=== PATIENT | female | born 1990 | race Hispanic/Latino ===

== ENCOUNTER 2017-06-18 07:28 | Inpatient (IN) | payer MEDICAID, OTHER ==
[2017-06-18 07:33] VITALS: BMI 29.5
[2017-06-18 08:07] LABS: BASO % 0.3 % (0.0-2.0); EOS # 0.5 K/uL (0.0-0.7); EOS % 3.8 % (0.0-4.0); HEMOGLOBIN 10.7 g/dL (11.0-16.0); LYMPH # 2.4 K/uL (1.0-4.3); LYMPH % 20.1 % (20.0-40.0); MEAN CELL VOLUME 82.3 fL (81.0-99.0); MEAN CORPUSCULAR HEMOGLOBIN 27.8 pg (27.0-31.0); MEAN CORPUSCULAR HGB CONC 33.8 g/dL (33.0-37.0); MEAN PLATELET VOLUME 9.5 fL (7.2-11.7); MONO # 0.6 K/uL (0.0-0.8); MONO % 4.6 % (0.0-10.0); NEUT # 8.6 K/uL (1.8-7.0); NEUT % 71.2 % (50.0-75.0); RBC 3.84 Mil/uL (3.80-5.20); RED CELL DISTRIBUTION WIDTH 15.7 % (11.5-14.5); WHITE BLOOD COUNT 12.1 K/uL (4.8-10.8)
[2017-06-18 08:17] LABS: HCG,QUALITATIVE URINE POSITIVE (NEGATIVE)
[2017-06-18 08:19] LABS: SQUAMOUS EPITHIAL 16 /hpf (0-5); URINE BACTERIA RARE (<OCC); URINE BILIRUBIN NEGATIVE (NEGATIVE); URINE BLOOD 2+ (NEGATIVE); URINE CLARITY Hazy (Clear); URINE COLOR Yellow (YELLOW); URINE GLUCOSE (UA) NORMAL (Normal); URINE LEUKOCYTE ESTERASE TRACE Leu/uL (Negative); URINE NITRATE NEGATIVE (NEGATIVE); URINE PROTEIN 1+ mg/dL (NEGATIVE)
[2017-06-18 08:20] LABS: ALB/GLOB RATIO 1.1 (1.0-2.1); ALBUMIN 3.6 g/dL (3.5-5.0); ALT/SGPT 11 U/L (9-52); AST/SGOT 16 U/L (14-36); BLOOD UREA NITROGEN 7 mg/dL (7-17); CALCIUM 8.2 mg/dl (8.6-10.4); GFR AFRICAN-AMERICAN > 60; GFR NON-AFRICAN AMERICAN > 60
[2017-06-18 08:24] LABS: BARBITURATES, UR NEGATIVE (NEGATIVE); BENZODIAZEPINES, UR NEGATIVE (NEGATIVE); PHENCYCLIDINE, UR NEGATIVE (NEGATIVE)
[2017-06-18 08:27] LABS: OPIATES, UR POSITIVE (NEGATIVE)
--- NOTE | 2017-06-18 09:22 | C.PDOC ---
History Of Present Illness Patient is a 26 y/o female who presents to the ED requesting detox from heroin. Admits to last dose being yesterday. Patient is currently 18 weeks ; A2. LMP was 01/19/17. Denies fever, chills, headache, dizziness, neck pain, CP, SOB, dyspnea, abdominal pain, nausea, vomiting, vaginal bleeding, UTI sx. As of today, patient denies any care. No other physical complaints at this time. At present time, awake, comfortable, appropriate, not in any apparent distress. Time Seen by Provider: 06/18/17 07:40 Chief Complaint (Nursing): Substance Abuse History Per: Patient History/Exam Limitations: no limitations Modifying Factor(s): Narcotics (heroin) Recent travel outside of the [place]: No Past Medical History Reviewed: Historical Data, Nursing Documentation, Vital Signs Vital Signs: Last Vital Signs Temp 98.6 F 06/18/17 07:38 Pulse 87 06/18/17 07:38 Resp 18 06/18/17 07:38 BP 115/72 06/18/17 07:38 Pulse Ox 100 06/18/17 10:38 - Medical History PMH: Asthma Surgical History: No Surg Hx Family History: States: No Known Family Hx - Social History Hx Alcohol Use: No Hx Substance Use: Yes - Immunization History Hx Tetanus Toxoid Vaccination: No Hx Influenza Vaccination: No Hx Pneumococcal Vaccination: No Review Of Systems Except As Marked, All Systems Reviewed And Found Negative. Constitutional: Negative for: Fever, Chills Eyes: Negative for: Vision Change ENT: Negative for: Throat Pain Cardiovascular: Negative for: Chest Pain, Palpitations Respiratory: Negative for: Cough, Shortness of Breath, Wheezing Gastrointestinal: Positive for: Other (18 weeks ). Negative for: Nausea , Vomiting, Abdominal Pain, Diarrhea Genitourinary: Negative for: Dysuria, Incontinence, Hematuria, Vaginal Bleeding Musculoskeletal: Negative for: Neck Pain, Back Pain Skin: Negative for: Rash Neurological: Positive for: Other (requesting heroin detox) Psych: Negative for: Anxiety, Suicidal ideation Physical Exam - Physical Exam Appears: Well, Non-toxic, No Acute Distress Skin: Normal Color, Warm, Dry, No Rash Head: Normacephalic Eye(s): bilateral: PERRL Nose: No Flaring, No Discharge Oral Mucosa: Moist, No Drooling Throat: No Erythema, No Drooling Neck: Trachea Midline, Supple Cardiovascular: Rhythm Regular Respiratory: No Decreased Breath Sounds, No Accessory Muscle Use, No Stridor, No Wheezing, No Plerual Rub Gastrointestinal/Abdominal: Soft, No Tenderness, No Distention, No Guarding Back: No CVA Tenderness Extremity: Normal ROM, No Deformity, No Swelling Neurological/Psych: Oriented x3, Normal Speech ED Course And Treatment - Laboratory Results Result Diagrams: 06/18/17 08:04 06/18/17 08:04 Lab Interpretation: No Acute Changes Urine POC: Positive O2 Sat by Pulse Oximetry: 100 Pulse Ox Interpretation: Normal - CT Scan/US OB pelvic US Other Rad Studies (CT/US): Interpreted By Me, Read By Radiologist CT/US Interpretation: IMPRESSION: Single intrauterine live with ultrasound estimated gestational age of 18 weeks 5 days 1 week 2 days. Estimated date of delivery by ultrasound is 11/14/2017. Progress Note: Pt remained stable in ED. Blood work review and appears without acute findings. (+). Pt is medically cleared for PES evaluation. 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 Beta quant and US ordered. At 10:10, US results review and c/w single live IUP 18w5d, (+) FHR, no acute abnormalities. beta quant c/w US findings. was called for consult per request and was evaluated in ED. At 11:10, pt was interviewed by and admission arranged to detox with Dx: Opioid dependance. Disposition - Disposition Disposition: HOSPITALIZED Disposition Time: 11:01 Condition: STABLE Forms: [facility] (Serbian) - Clinical Impression Clinical Impression: Opioid dependence - Scribe Statement The provider has reviewed the documentation as recorded by the Scribe Lucinda Ulloa All medical record entries made by the Scribe were at my direction and personally dictated by me. I have reviewed the chart and agree that the record accurately reflects my personal performance of the history, physical exam, medical decision making, and the department course for this patient. I have also personally directed, reviewed, and agree with the discharge instructions and disposition.
--- NOTE | 2017-06-18 10:31 | US ---
PROCEDURE: OB Pelvic Ultrasound HISTORY: PSYCH CLEARENCE COMPARISON: None available. FINDINGS: UTERUS: Gestational sac: Single intrauterine gestation. Heart rate: 129 bpm. age (Ultrasound estimated): 18 weeks 5 days 1 week 2 days Keila-gestational hemorrhage: None. Date of delivery (Ultrasound estimated) : 11/14/2017 The amount of amniotic fluid is adequate. The fetus is seen at breech presentation at the time of this exam. The placenta seen at the anterior wall. CERVIX: Long and closed. No cervical abnormality seen. The cervix measures 4.8 centimeter. RIGHT OVARY: The right ovary was not visualized. LEFT OVARY: The left ovary was not visualized. FREE FLUID: None. OTHER FINDINGS: None. IMPRESSION: Single intrauterine live with ultrasound estimated gestational age of 18 weeks 5 days 1 week 2 days. Estimated date of delivery by ultrasound is 11/14/2017.
--- NOTE | 2017-06-18 12:12 | PCM.BM ---
<Mindy Abdalla - Last Filed: 06/18/17 12:06> Treatment Plan Problems - Problems identified on initial assessmt Opiates abuse Date Initiated: 06/18/17 Time Initiated: 11:55 Assessment reference: NA Status: Active Treatment assets and liabiliti Patient Assests: cooperative, ADL independent, good support system, negotiates basic needs Patient Liabilities: substance abuse - Milieu Protocol Maintain good personal hygiene: daily Encourage regular showers, daily Remind patient to perform daily oral care, daily Assist patient to perform ADL's Maintain personal safety: every shift Educate patient to report safety concerns to staff, every shift Monitor environment for contraband/sharps Medication safety: Monitor for expected outcome, potential side effects: every shift, Assess barriers to learning: every shift, Assess readiness for medication education: every shift <Michelle Mcconnell - Last Filed: 06/20/17 12:43> Family Contact Family involvement: Family/SO is involved Family contact: Patient agrees to contact Family contact name: boyfriend - Goals for Treatment Patient goals for treatment: Transition from detox to methadone maintenance and pre-josefa care. Discharge/Continuing Care - Education Needs Education Needs: Patient Medication, Patient Diagnosis/Disease Process, Patient Coping Skills, Patient Anger Management skills, Patient Placement options, Patient Community resources - Discharge Discharge Criteria: Ability to care for self, No longer exhibiting s/s of withdrawal, Reduction of target symptoms Discharge to:: Home, With Family - Treatment Team Participation Patient/Family/SO Statement: 06/20/17 12:43 "I wanna go to a methadone program. The detox is too fast." Discussed with Family/SO: No Was Patient/Family/SO present at Treatment Team Meeting: Yes
--- NOTE | 2017-06-18 15:44 | PCM.PYCHPN ---
Psychiatric Progress Note - Psychiatric Progress Note Patient seen today, length of contact: 15 minutes Patient Chief Complaint: I want to be sober Problems Identified/Issues Discussed: This is a 26 year old White female who was seen in ER for detox treatment. Pt is 17 week . She did not received any care. Pt stated that she has a high risk 2/2 to heroin use and she did not had any insurance due to which she was not able to see any ObGyn. Pt was seen by ObGyn in ER and she was cleared for detox treatment. Patient uses 8-10 bags of heroin, intranasally, daily for the past 7 months and smokes half a joint of marijuana every 3 days. Her last dose of heroin was this morning around 7am and last used marijuana yesterday, 06/17/2017. Patient denies current withdrawal symptoms but states when she experiences them she has chills , shakes, sweats, vomiting and diarrhea. Patient reports she smokes two cigarettes daily. She denies past chemical dependency treatment. Patient denies current psychiatric symptoms but reports having felt depressed in the past. DSM 5 Symptoms Update: Opioid dependence, severe Opioid withdrawal symptoms Mental Status Examination - Cognitive Function Orientation: Person, Place, Situation, Time Memory: Intact Attention: WNL Concentration: WNL Association: WNL Fund of Knowledge: WNL - Mood Mood: Anxious - Affect Affect: Constricted - Speech Speech: Appropriate - Formal Thought Process Formal Thought Process: No Impairment Psychotic Thoughts and Behaviors: denied - Suicidal Ideation Suicidal Ideation: No Plan: denied - Homicidal Ideation Homicidal Ideation: No Plan: denied Goal/Treatment Plan - Goal/Treatment Plan Need for Continued Stay: Discharge may exacerbated symptoms, Severe functional impairment Progress Toward Problem(s) and Goals/Treatment Plan: Recommend to start Methdone detox. Methadone benefits, side effects including risk of early premature delivery, including loss of fetus, withdrawal symptoms, etc, were discussed in detail with the patient and her fiance. Pt verbalized understanding and stated that she methadone detox and later wants to be d/c to [facility] or rehab program. Will start giving methadone once she will have opioid withdrawal symptoms. Methadone maintanence after d/c
--- NOTE | 2017-06-18 18:21 | CP.PCM.CON ---
History of Present Illness - History of Present Illness History of Present Illness: 26 yr at 18+weeks came for detoxification for herion . pt taking heroin for 7 months. states cuttng dowwn. doing 10 packs.no with drawl symri=oms. pt has not seen an obgyn yet. obhx 1 x [facility], 1 x [facility] herion abuse med heroin psh den so[facility] saeed [facility] 18+weeks +fh Past Patient History - Past Medical History & Family History Past Medical History?: Yes - Past Social History Smoking Status: Current Some Days Smoker - CARDIAC Hx Cardiac Disorders: No Hx Hypertension: No - PULMONARY Hx Asthma: Yes - NEUROLOGICAL Hx Neurological Disorder: No HX Cerebrovascular Accident: No Hx Seizures: No - HEENT Hx HEENT Problems: No - RENAL Hx Chronic Kidney Disease: No - ENDOCRINE/METABOLIC Hx Endocrine Disorders: No - HEMATOLOGICAL/ONCOLOGICAL Hx Blood Disorders: No Hx Cancer: No Hx Human Immunodeficiency Virus (HIV): No - INTEGUMENTARY Hx Dermatological Problems: No - MUSCULOSKELETAL/RHEUMATOLOGICAL Hx Musculoskeletal Disorders: No Hx Falls: No - GASTROINTESTINAL Hx Gastrointestinal Disorders: No - GENITOURINARY/GYNECOLOGICAL Hx Genitourinary Disorders: No Hx Sexually Transmitted Disorders: No - PSYCHIATRIC Hx Psychophysiologic Disorder: No Hx Anxiety: No Hx Bipolar Disorder: No Hx Depression: No Hx Emotional Abuse: No Hx Hallucinations: No Hx Panic Symptoms: No Hx Paranoia: No Hx Post Traumatic Stress Disorder: No Hx Psychosis: No Hx Physical Abuse: No Hx Schizophrenia: No Hx Sexual Abuse: No Hx Substance Use: Yes - SURGICAL HISTORY Hx Surgeries: Yes Other/Comment: "" - ANESTHESIA Hx Anesthesia: Yes Hx Anesthesia Reactions: No Hx Malignant Hyperthermia: No Has any member of the family had a problem w/ anesthesia?: No Meds Allergies/Adverse Reactions: Allergies Allergy/AdvReac Type Severity Reaction Status Date / Time No Known Allergies Allergy Verified 06/18/17 07:31 - Medications Medications: Current Medications Pneumococcal Polyvalent Vaccine (Pneumovax 23 Vaccine) 0.5 ml IM .ONCE ONE Stop: 06/20/17 10:01 Results - Vital Signs Recent Vital Signs: Last Vital Signs Temp 97.8 F 06/18/17 17:44 Pulse 79 06/18/17 17:44 Resp 18 06/18/17 17:44 BP 105/70 01/07/18 17:44 Pulse Ox 99 06/18/17 17:44 - Labs Result Diagrams: 06/18/17 08:04 06/18/17 08:04 Labs: Laboratory Results - last 24 hr 06/18/17 06/18/17 06/18/17 08:04 08:04 08:04 WBC 12.1 H RBC 3.84 Hgb 10.7 L Hct 31.7 L MCV 82.3 MCH 27.8 MCHC 33.8 RDW 15.7 H Plt Count 236 MPV 9.5 Neut % (Auto) 71.2 Lymph % (Auto) 20.1 Leake % (Auto) 4.6 Eos % (Auto) 3.8 Baso % (Auto) 0.3 Neut # 8.6 H Lymph # 2.4 Leake # 0.6 Eos # 0.5 Baso # 0.0 Sodium 131 L Potassium 3.4 L Chloride 100 Carbon Dioxide 24 Anion Gap 11 BUN 7 Creatinine 0.5 L Est GFR ( Amer) > 60 Est GFR (Non-Af Amer) > 60 Random Glucose 89 Calcium 8.2 L Total Bilirubin 0.2 AST 16 ALT 11 Alkaline Phosphatase 44 Total Protein 6.7 Albumin 3.6 Globulin 3.1 Albumin/Globulin Ratio 1.1 Beta HCG, Quant Urine Color Yellow Urine Clarity Hazy Urine pH 5.0 Ur Specific [place] 1.027 Urine Protein 1+ H Urine Glucose (UA) Normal Urine Ketones Trace Urine Blood 2+ H Urine Nitrate Negative Urine Bilirubin Negative Urine Urobilinogen 2.0 H Ur Leukocyte Esterase Trace Urine WBC (Auto) 5 Urine RBC (Auto) 27 H Ur Squamous Epith Cells 16 H Urine Bacteria Rare Urine HCG, Qual Positive Urine Opiates Screen Urine Methadone Screen Ur Barbiturates Screen Ur Phencyclidine Scrn Ur Amphetamines Screen U Benzodiazepines Scrn U Oth Cocaine Metabols U Cannabinoids Screen Alcohol, Quantitative < 10 06/18/17 06/18/17 08:04 08:04 WBC RBC Hgb Hct MCV MCH MCHC RDW Plt Count MPV Neut % (Auto) Lymph % (Auto) Leake % (Auto) Eos % (Auto) Baso % (Auto) Neut # Lymph # Leake # Eos # Baso # Sodium Potassium Chloride Carbon Dioxide Anion Gap BUN Creatinine Est GFR ( Amer) Est GFR (Non-Af Amer) Random Glucose Calcium Total Bilirubin AST ALT Alkaline Phosphatase Total Protein Albumin Globulin Albumin/Globulin Ratio Beta HCG, Quant .00 Urine Color Urine Clarity Urine pH Ur Specific [place] Urine Protein Urine Glucose (UA) Urine Ketones Urine Blood Urine Nitrate Urine Bilirubin Urine Urobilinogen Ur Leukocyte Esterase Urine WBC (Auto) Urine RBC (Auto) Ur Squamous Epith Cells Urine Bacteria Urine HCG, Qual Urine Opiates Screen Positive H Urine Methadone Screen Negative Ur Barbiturates Screen Negative Ur Phencyclidine Scrn Negative Ur Amphetamines Screen Negative U Benzodiazepines Scrn Negative U Oth Cocaine Metabols Negative U Cannabinoids Screen Positive H Alcohol, Quantitative Assessment & Plan - Assessment and Plan (Free Text) Assessment: 26yr at 18+weeks w with Heroin abuse for DETOX Plan: PLAN Cont with medical management for detox. no ob interventions at this time. Thank you for consult - Date & Time Date: 06/18/17 Time: 13:00
[2017-06-19 09:25] VITALS: RESP 18
--- NOTE | 2017-06-19 10:47 | PCM.PYCHPN ---
Psychiatric Progress Note - Psychiatric Progress Note Patient seen today, length of contact: 15 minutes Mental Status Examination - Cognitive Function Orientation: Person, Place, Situation, Time Memory: Intact Attention: WNL Concentration: WNL Association: WNL Fund of Knowledge: WNL - Mood Mood: Anxious - Affect Affect: Constricted - Speech Speech: Appropriate - Formal Thought Process Formal Thought Process: No Impairment - Suicidal Ideation Suicidal Ideation: No - Homicidal Ideation Homicidal Ideation: No Goal/Treatment Plan - Goal/Treatment Plan Need for Continued Stay: Discharge may exacerbated symptoms, Severe functional impairment
[2017-06-19] MEDS ORDERED: Albuterol 0.083% Inhal Sol (2.5 mg/3 mL) UD IH PRN ×2 (10:48→11:00)
[2017-06-19] MEDS: Prenatal Multivit/Folic Acid/Iron Tab PO SCH (11:24)
--- NOTE | 2017-06-20 01:50 | CP.PCM.CON ---
History of Present Illness - History of Present Illness History of Present Illness: Notified by RQuintinNQuintin - patient c/o lower abdominal pain Patient received in bed, asleep, but easily awakened. 26 y. P1, 18w 6d, admitted for heroine detox c/o lower abdominal pain, crampy in nature, onset 2100 hours 06/19/17; pain scale 7/10. Has taken no pain medications. Denies symptoms. Denies constipation. Denies vaginal bleeding or leakage of fluid per vagina. Past Patient History - Past Medical History & Family History Past Medical History?: Yes - Past Social History Smoking Status: Current Some Days Smoker - CARDIAC Hx Cardiac Disorders: No Hx Hypertension: No - PULMONARY Hx Asthma: Yes - NEUROLOGICAL Hx Neurological Disorder: No HX Cerebrovascular Accident: No Hx Seizures: No - HEENT Hx HEENT Problems: No - RENAL Hx Chronic Kidney Disease: No - ENDOCRINE/METABOLIC Hx Endocrine Disorders: No - HEMATOLOGICAL/ONCOLOGICAL Hx Blood Disorders: No Hx Cancer: No Hx Human Immunodeficiency Virus (HIV): No - INTEGUMENTARY Hx Dermatological Problems: No - MUSCULOSKELETAL/RHEUMATOLOGICAL Hx Musculoskeletal Disorders: No Hx Falls: No - GASTROINTESTINAL Hx Gastrointestinal Disorders: No - GENITOURINARY/GYNECOLOGICAL Hx Genitourinary Disorders: No Hx Sexually Transmitted Disorders: No - PSYCHIATRIC Hx Substance Use: Yes - SURGICAL HISTORY Hx Surgeries: Yes Other/Comment: "" - ANESTHESIA Hx Anesthesia: Yes Hx Anesthesia Reactions: No Hx Malignant Hyperthermia: No Has any member of the family had a problem w/ anesthesia?: No Meds Allergies/Adverse Reactions: Allergies Allergy/AdvReac Type Severity Reaction Status Date / Time No Known Allergies Allergy Verified 06/18/17 07:31 - Medications Medications: Current Medications Acetaminophen (Tylenol 325mg Tab) 650 mg PO Q6 PRN PRN Reason: Pain, Mild (1-3) Albuterol Sulfate (Albuterol 0.083% Inhal Adela (2.5 Mg/3 Ml) Ud) 2.5 mg IH Q2 PRN PRN Reason: Shortness of Breath Diphenhydramine HCl (Benadryl) 25 mg PO Q6 PRN PRN Reason: Agitation Last Admin: 06/19/17 19:49 Dose: 25 mg Ibuprofen (Motrin Tab) 600 mg PO TID RUDY Methadone HCl (Methadone) 10 mg PO DAILY RUDY PRN Reason: Taper Stop: 06/22/17 09:59 Pneumococcal Polyvalent Vaccine (Pneumovax 23 Vaccine) 0.5 ml IM .ONCE ONE Stop: 06/20/17 10:01 Multivit/Folic Acid/Iron () 1 tab PO DAILY RUDY Last Admin: 06/19/17 11:24 Dose: 1 tab Physical Exam - Constitutional Appears: Well, No Acute Distress - Head Exam Head Exam: NORMAL INSPECTION - Neck Exam Neck exam: Positive for: Full Rom - Respiratory Exam Respiratory Exam: NORMAL BREATHING PATTERN - Cardiovascular Exam Cardiovascular Exam: REGULAR RHYTHM - GI/Abdominal Exam GI & Abdominal Exam: Soft (Non tender. ) - Exam Bimanual exam: NORMAL BIMANUAL EXAM (Cervix closed. ) Results - Vital Signs Recent Vital Signs: Last Vital Signs Temp 98 F 06/19/17 21:52 Pulse 79 06/19/17 21:52 Resp 18 06/19/17 21:52 BP 104/70 06/19/17 21:52 Pulse Ox 100 06/19/17 21:52 - Labs Result Diagrams: 06/18/17 08:04 06/18/17 08:04 Assessment & Plan - Assessment and Plan (Free Text) Assessment: 26 y.o. P1, 18w 6d admitted for heroine detox, lower abdominal pain most likely due to withdrawal. Patient is clinically stable. Plan: 1) Motrin 600 mg p.o. every 6 hours, PRN 2) Increase p.o. intake of water Thank you for the pleasure of this consultation Please reconsult if necessary/ - Date & Time Date: 06/20/17 Time: 01:54
[2017-06-20] MEDS: Prenatal Multivit/Folic Acid/Iron Tab PO SCH (09:18)
[2017-06-20] MEDS ORDERED: Pneumococcal 23-Valent Vaccine IM ONE (10:00)
[2017-06-20] MEDS ORDERED: Influenza Vaccine 60 mcg/0.5 mL SYR (4YR UP) IM ONE (10:00)
--- NOTE | 2017-06-20 15:52 | PCM.PYCHPN ---
Psychiatric Progress Note - Psychiatric Progress Note Patient seen today, length of contact: 16 minutes Patient Chief Complaint: Feeling better Problems Identified/Issues Discussed: The pt is seen, chart reviewed, case discussed with staff. She states she had a restless night and felt as if the methadone dose was not enough The pt is compliant with medications and reports no side-effects. Symptoms are improving but needs more time to stabilize. After care discussed, support and psychoeducation given. Medication Change: Yes Medical Record Reviewed: Yes Mental Status Examination - Cognitive Function Orientation: Person, Place, Situation, Time Memory: Intact Attention: WNL Concentration: WNL Association: WNL Fund of Knowledge: WNL - Mood Mood: Anxious - Affect Affect: Constricted - Speech Speech: Appropriate - Formal Thought Process Formal Thought Process: No Impairment - Suicidal Ideation Suicidal Ideation: No - Homicidal Ideation Homicidal Ideation: No Goal/Treatment Plan - Goal/Treatment Plan Need for Continued Stay: Discharge may exacerbated symptoms, Severe functional impairment Progress Toward Problem(s) and Goals/Treatment Plan: Methadone , Multivitamins 1 tab daily, Motrin 600mg TID As needed medications Attend groups and activities Supportive therapy and psychoeducation [place] for abstinence CBT for relapse prevention Encourage MAT Refer to rehab or IOP Attend self-help groups as well All risks of meds, incl. using them during discussed - she understood and agreed
--- NOTE | 2017-06-21 08:50 | PCM.PYCHDC ---
Mental Status Examination - Mental Status Examination Orientation: Person, Place, Situation, Time Discharge Summary - Discharge Note Consultations:: List each consultation separately and include: 1. Reason for request. 2. Findings. 3. Follow-up Summary of Hospital Course include:: 1. Description of specific treatment plan utilized for patients during their course of treatmen. 2. Summarize the time- course for resolution of acute symptoms and/or regressed behaviors. 3. Describe issues identified and worked on during hospitalization. 4. Describe medication utilized. 5. Describe medical problems identified and treated. 6. Reassessment of suicide risk - Final Diagnosis (DSM 5) Condition upon Discharge: STABLE Disposition: HOME/ ROUTINE
[2017-06-21] MEDS: Prenatal Multivit/Folic Acid/Iron Tab PO SCH (09:23)
[2017-06-21 09:50] VITALS: BP 116/65; PULSE 88; TEMP 98; O2SAT 100
== END 2017-06-21 10:10 | disposition home or self-care (01) | DRG 373 ==
LOC: C.ER 07:28 → C.7D 11:07
PROVIDERS: ADMIT Psychiatry & Neurology Psychiatry; ATTEND Psychiatry & Neurology Psychiatry
PROC: HZ2ZZZZ Detoxification Services for Substance Abuse Treatment (ICD-10-PCS; principal; 2017-06-18)
DX: O99.322 Drug use complicating pregnancy, second trimester (principal); F11.23 Opioid dependence with withdrawal; F14.10 Cocaine abuse, uncomplicated; J45.909 Unspecified asthma, uncomplicated; O99.334 Smoking (tobacco) complicating childbirth; Z3A.18 18 weeks gestation of pregnancy